=== PATIENT | male | born 1960 | race Caucasian/White ===

== ENCOUNTER 2017-12-29 10:28 | Emergency (ER) | payer OTHER ==
[~2017-12-29] VITALS: Ht 188 cm; Wt 142.0 kg
[2017-12-29 10:34] VITALS: BP 141/79; PULSE 84; RESP 24; O2SAT 99
[2017-12-29 10:44] VITALS: TEMP 97.7
[2017-12-29] MEDS ORDERED: SODIUM CHLOR 0.9% 1000 ML INJ 1,000 ML IV SCH (11:09)
[2017-12-29] MEDS ORDERED: ONDANSETRON HCL 4 MG/2 ML VIAL IVP ONE (11:15)
[2017-12-29] MEDS ORDERED: SODIUM CHLORIDE 0.9% FLUSH 10 ML FLUSH IV FLUSH PRN (11:15)
[2017-12-29] MEDS ORDERED: FAMOTIDINE 20 MG/2 ML VIAL IV PUSH ONE (11:15)
[2017-12-29] MEDS ORDERED: MORPHINE SULFATE 4 MG/ML INJ IV PUSH ONE (11:15)
--- NOTE | 2017-12-29 11:26 | PD ---
HPI Chief Complaint: Chest Pain Time Seen by Provider: 10:50 Travel History International Travel<30 days: No Contact w/Intl Traveler<30days: No Traveled to known affect area: No History of Present Illness HPI 57-year-old male with PMH of COPD, HLD, DMT2, GERD, HTN, gastric ulcer, cardiac arrhythmia s/p pacemaker insertion last week presents to the ED for evaluation of 10 day history of epigastric pain. Rated 4/10 minimally, 7/10 maximally. Described as intermittent, waxing and waning. Worsened by eating. Somewhat alleviating by laying on his right side. Accompanied by chills, low appetite, nausea, vomiting, loose bowel movements, abdominal bloating, shortness of breath. Patient also endorses difficulty starting his urine stream. He denies chest pain, palpitations, cough, back pain, lower extremity edema, hematemesis, melena, hematochezia. He states that he was inpatient at [facility] until 2 days ago. He states that he had an upper endoscopy at that time that was negative. He states that he also had a pacemaker implanted by Dr. Mustafa at that time. He has not had outpatient follow-up since that admission. He is never had abdominal surgery. He states that he did not go back there because he felt "like they did not treat me right or fix my problem. " PCP Dr. Martínez, GI Dr. Fuchs, both out of [place]. [facility] Past Medical History Anxiety: Yes Cardiovascular Problems: Yes High Cholesterol: Yes COPD: Yes Diabetes: Yes Patient Takes Glucophage: No GERD: Yes Hypertension: Yes Respiratory: Yes Ulcer: Yes Past Surgical History Pacemaker: Yes ([employer] Micra [id number] ) Social History Alcohol Use: No Tobacco Use: No Substance Use: No Allergies-Medications (Allergen,Severity, Reaction): Coded Allergies: No Known Allergies (Unverified , 12/29/17) Reported Meds & Prescriptions Reported Meds & Active Scripts Active Reglan (Metoclopramide HCl) 5 Mg Tab 5 Mg PO TIDAC 5 Days Flagyl (Metronidazole) 500 Mg Tab 500 Mg PO TID 7 Days Cipro (Ciprofloxacin HCl) 500 Mg Tab 500 Mg PO BID 7 Days Protonix (Pantoprazole Sodium) 40 Mg Tab 40 Mg PO DAILY Review of Systems Except as stated in HPI: all other systems reviewed are Neg Physical Exam Narrative GENERAL: Well-nourished, well-developed obese white male in no acute distress. SKIN: Focused skin assessment warm/dry. Multiple tattoos noted. Subcentimeter incision in the right groin, well healing without signs of infection. HEAD: Normocephalic. EYES: No scleral icterus. No injection or drainage. NECK: Supple, trachea midline. No JVD or lymphadenopathy. CARDIOVASCULAR: Regular rate and rhythm without murmurs, gallops, or rubs. RESPIRATORY: Breath sounds clear and equal bilaterally. No accessory muscle use. GASTROINTESTINAL: Abdomen soft, mildly distended. Tender to palpation in the epigastric region. Ecchymosis noted in the left lower quadrant. RECTAL EXAM: No masses or tenderness, stool is brown. Guaiac negative MUSCULOSKELETAL: No cyanosis, or edema. BACK: Nontender without obvious deformity. No CVA tenderness. Data Data Last Documented VS Vital Signs Date Time Temp Pulse Resp B/P (MAP) Pulse Ox O2 Delivery O2 Flow Rate FiO2 12/29/17 15:31 2.00 12/29/17 13:24 94 Room Air 12/29/17 10:44 97.7 12/29/17 10:38 79 22 12/29/17 10:34 141/79 (99) Orders Orders Complete Blood Count With Diff (12/29/17 11:09) Comprehensive Metabolic Panel (12/29/17 11:09) Lipase (12/29/17 11:09) Lactic Acid (12/29/17 11:09) Prothrombin Time / Inr (Pt) (12/29/17 11:09) Act Partial Throm Time (Ptt) (12/29/17 11:09) Urinalysis - C+S If Indicated (12/29/17 11:09) Ct Abd/Pel W Iv Contrast(Rout) (12/29/17 11:09) Iv Access Insert/Monitor (12/29/17 11:09) Ecg Monitoring (12/29/17 11:09) Oximetry (12/29/17 11:09) Morphine Inj (Morphine Inj) (12/29/17 11:15) Ondansetron Inj (Zofran Inj) (12/29/17 11:15) Sodium Chlor 0.9% 1000 Ml Inj (Ns 1000 M (12/29/17 11:09) Sodium Chloride 0.9% Flush (Ns Flush) (12/29/17 11:15) Famotidine Inj (Pepcid Inj) (12/29/17 11:15) Ckmb (Isoenzyme) Profile (12/29/17 11:09) Troponin I (12/29/17 11:09) Magnesium (Mg) (12/29/17 11:09) Chest, Single Ap (12/29/17 ) Al-Mag Hy-Si 40-40-4 Mg/Ml Liq (Mag-Al P (12/29/17 12:15) Lidocaine 2% Viscous (Xylocaine 2% Visco (12/29/17 12:15) Electrocardiogram (12/29/17 ) Iohexol 350 Inj (Omnipaque 350 Inj) (12/29/17 12:32) Morphine Inj (Morphine Inj) (12/29/17 14:00) Ed Discharge Order (12/29/17 14:58) Labs Laboratory Tests Test 12/29/17 11:22 12/29/17 13:45 White Blood Count 6.4 TH/MM3 Red Blood Count 4.89 MIL/MM3 Hemoglobin 13.5 GM/DL Hematocrit 40.2 % Mean Corpuscular Volume 82.2 FL Mean Corpuscular Hemoglobin 27.5 PG Mean Corpuscular Hemoglobin Concent 33.5 % Red Cell Distribution Width 14.8 % Platelet Count 286 TH/MM3 Mean Platelet Volume 10.0 FL Neutrophils (%) (Auto) 62.5 % Lymphocytes (%) (Auto) 27.3 % Monocytes (%) (Auto) 7.1 % Eosinophils (%) (Auto) 2.2 % Basophils (%) (Auto) 0.9 % Neutrophils # (Auto) 4.0 TH/MM3 Lymphocytes # (Auto) 1.8 TH/MM3 Monocytes # (Auto) 0.5 TH/MM3 Eosinophils # (Auto) 0.1 TH/MM3 Basophils # (Auto) 0.1 TH/MM3 CBC Comment DIFF FINAL Differential Comment Prothrombin Time 10.3 SEC Prothromb Time International Ratio 1.0 RATIO Activated Partial Thromboplast Time 26.4 SEC Blood Urea Nitrogen 15 MG/DL Creatinine 1.14 MG/DL Random Glucose 121 MG/DL Total Protein 7.3 GM/DL Albumin 3.5 GM/DL Calcium Level 8.7 MG/DL Magnesium Level 1.9 MG/DL Alkaline Phosphatase 98 U/L Aspartate Amino Transf (AST/SGOT) 36 U/L Alanine Aminotransferase (ALT/SGPT) 52 U/L Total Bilirubin 0.6 MG/DL Sodium Level 138 MEQ/L Potassium Level 3.2 MEQ/L Chloride Level 101 MEQ/L Carbon Dioxide Level 27.0 MEQ/L Anion Gap 10 MEQ/L Estimat Glomerular Filtration Rate 66 ML/MIN Lactic Acid Level 2.0 mmol/L Total Creatine Kinase 93 U/L Troponin I LESS THAN 0.02 NG/ML Lipase 139 U/L Urine Color YELLOW Urine Turbidity CLEAR Urine pH 8.5 Urine Specific [place] 1.023 Urine Protein TRACE mg/dL Urine Glucose (UA) NEG mg/dL Urine Ketones TRACE mg/dL Urine Occult Blood NEG Urine Nitrite NEG Urine Bilirubin NEG Urine Urobilinogen LESS THAN 2.0 MG/DL Urine Leukocyte Esterase NEG Urine RBC 1 /hpf Urine WBC 2 /hpf Microscopic Urinalysis Comment CULT NOT INDICATED MDM Medical Decision Making Medical Screen Exam Complete: Yes Emergency Medical Condition: Yes Differential Diagnosis Hiatal hernia versus GERD versus PUD versus cholecystitis versus pancreatitis versus ACS versus chest pain versus other Narrative Course 57-year-old male with PMH of COPD, HLD, DMT2, GERD, HTN, gastric ulcer, cardiac arrhythmia s/p pacemaker insertion last week presents to the ED for evaluation of 10 day history of epigastric pain. Intermittent, waxing and waning, worsened by eating. Accompanied by diaphoresis, chills, low appetite, nausea, vomiting, loose bowel movements, abdominal bloating, shortness of breath. He was inpatient at [facility] until 2 days ago. He states that he had an upper endoscopy at that time that was negative. He states that he also had a pacemaker implanted by Dr. Mustafa at that time. He has not had outpatient follow-up since that admission. He states that he did not go back because he felt "like they did not treat me right or fix my problem." PCP Dr. Martínez, GI Dr. Fuchs, both out of [place]. Pulse 84, BP 141/79, respiratory rate 24, pulse ox 99% on room air on presentation. Physical exam reveals an obese white male in no acute distress. He has reproducible tenderness in the epigastric region but the exam is otherwise unremarkable. IV was established. Patient was administered 4 mg Zofran, 4 mg morphine, 20 mg famotidine 1 L normal saline IV and GI cocktail by mouth. Outpatient record was requested from [facility]. EKG rate 79, sinus rhythm. OH interval 184, QRS 94, QTC 417. Normal axis. Nonspecific ST abnormality. No acute changes. Reviewed by Dr. Jones. CXR: No acute disease per radiology read. Cardiac enzymes negative 1. CBC is unremarkable. INR 1.0. CMP: Potassium 3.2. Glucose 121. Lipase [address] abdomen pelvis: No definite abnormalities identified to explain the clinical symptoms. No acute finding identified. Mild groundglass opacity in the small bowel mesentery which could represent a mesenteric panniculitis but can simply be seen as a normal variant. There are bilateral adrenal gland masses measuring up to 3.4 cm on the right. These do not meet criteria for adenomas on this contrast-enhanced examination. Suggest correlating with any prior outside imaging studies. If none are available suggest further characterization with adrenal protocol CT or MRI on an elective outpatient basis. There is a 2.5 cm metallic linear density in the apical aspect of the right ventricle. Questionable abandoned portion of a pacing wire. Nonacute findings include hepatomegaly with steatosis and mild atherosclerotic disease. On recheck the patient is lying down in the bed, chatting with his family at bedside. He is still complaining of pain. He was administered an additional 4 mg of Zofran. At the conclusion of the evaluation the outpatient record has not been received. I suspect gastrointestinal origin of his pain. Patient's prescribed Reglan, Protonix, Cipro and Flagyl. 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 The patient and his family indicated understanding of the instructions. The patient is stable and discharged home. Diagnosis Primary Impression: Gastroenteritis Additional Impression: Epigastric abdominal pain Referrals: Community Director Patient Instructions: Abdominal Pain (ED), Diet for Stomach Ulcers and Gastritis (ED), Gastroesophageal Reflux Disease (ED), General Instructions Additional Instructions: Rest, hydrate. Begin taking Protonix and antibiotics today. Take every dose of the antibiotic as they are prescribed until every pill is gone. Eat a bland, liquid diet for the next few days and gradually reintroduce new foods. This can include broth, popsicles, applesauce, dry toast. See attached dietary information for more information. Continue at home medications as previously prescribed. Your CT revealed masses above the kidneys of unclear etiology. This needs to be followed up in 3 months by a [address] scan. Kidney function was normal today. Call your Community Director TODAY for follow up this week. Return to the ED for worsening symptoms or any urgent or emergent medical condition. Med/Other Pt SpecificInfo: Prescription(s) given Scripts Metoclopramide (Reglan) 5 Mg Tab 5 MG PO TIDAC for 5 Days, TAB 0 Refills Prov: Emma Jones MD 12/29/17 Metronidazole (Flagyl) 500 Mg Tab 500 MG PO TID for Infection for 7 Days, TAB 0 Refills Prov: Emma Jones MD 12/29/17 Ciprofloxacin (Cipro) 500 Mg Tab 500 MG PO BID for Infection for 7 Days, #14 TAB 0 Refills Prov: Emma Jones MD 12/29/17 Pantoprazole (Protonix) 40 Mg Tab 40 MG PO DAILY for Reflux, #30 TAB 0 Refills Prov: Emma Jones MD 12/29/17 Disposition: 01 DISCHARGE HOME Condition: Stable Melinda Salazar Dec 29, 2017 11:26
[2017-12-29 11:28] VITALS: O2SAT 97
--- NOTE | 2017-12-29 11:48 | RADRPT ---
EXAM DATE/TIME: 12/29/2017 11:30 [facility] COMPARISON: No previous studies available for comparison. INDICATIONS : Complains of abdominal pain, cold sweats, dizziness. MEDICAL HISTORY : Cardiovascular disease. Diabetes mellitus type II. Chronic obstructive pulmonary disease. SURGICAL HISTORY : Pacemaker ENCOUNTER: Initial ACUITY: 2 weeks PAIN SCORE: 10/10 LOCATION: Bilateral epigastric pain and chest FINDINGS: A single view of the chest demonstrates the lungs to be symmetrically aerated without evidence of mas s, infiltrate or effusion. The cardiomediastinal contours are unremarkable. Osseous structures are intact. Anterior cervical fusion plate in place in the lower cervical spine region and mild elevation right hemidiaphragm CONCLUSION: No acute disease. Josh Carrillo MD on December 29, 2017 at 11:44 Board Certified Radiologist. This report was verified electronically.
[2017-12-29 11:52] LABS: BASOPHIL # 0.1 TH/MM3 (0-0.2); BASOPHIL % 0.9 % (0.0-2.0); EOSINOPHIL # 0.1 TH/MM3 (0-0.4); EOSINOPHIL % 2.2 % (0.0-4.0); HEMATOCRIT 40.2 % (39.0-51.0); HEMOGLOBIN 13.5 GM/DL (13.0-17.0); LYMPH % 27.3 % (9.0-44.0); LYMPHOCYTE # 1.8 TH/MM3 (1.0-4.8); MEAN CELL VOLUME 82.2 FL (80.0-100.0); MEAN CORPUSCULAR HEMOGLOBIN 27.5 PG (27.0-34.0); MEAN CORPUSCULAR HGB CONC 33.5 % (32.0-36.0); MONO % 7.1 % (0.0-8.0); MONOCYTE # 0.5 TH/MM3 (0-0.9); NEUT % 62.5 % (16.0-70.0); PLATELET COUNT 286 TH/MM3 (150-450); PROTHROMBIN TIME - PATIENT 10.3 SEC (9.8-11.6); RED BLOOD COUNT 4.89 MIL/MM3 (4.50-5.90); RED CELL DISTRIBUTION WIDTH 14.8 % (11.6-17.2); WHITE BLOOD COUNT 6.4 TH/MM3 (4.0-11.0)
[2017-12-29 11:55] LABS: ALBUMIN 3.5 GM/DL (3.4-5.0); ALT (GPT) 52 U/L (12-78); AST (GOT) 36 U/L (15-37); BLOOD UREA NITROGEN 15 MG/DL (7-18); CALCIUM 8.7 MG/DL (8.5-10.1); CHLORIDE 101 MEQ/L (98-107); CREATININE 1.14 MG/DL (0.60-1.30); GLOMERULAR FILTRATION RATE 66 ML/MIN (>89); GLUCOSE,RANDOM 121 MG/DL (74-106); LIPASE 139 U/L (73-393); MAGNESIUM 1.9 MG/DL (1.5-2.5); SODIUM (NA) 138 MEQ/L (136-145)
[2017-12-29 12:00] LABS: ALKALINE PHOSPHATASE 98 U/L (45-117); TOTAL BILIRUBIN ADULT 0.6 MG/DL (0.2-1.0); TOTAL PROTEIN 7.3 GM/DL (6.4-8.2); TROPONIN I LESS THAN 0.02 NG/ML (0.02-0.05)
[2017-12-29] MEDS ORDERED: LIDOCAINE VISCOUS 2% SOLN 15 ML UDC PO ONE (12:15)
[2017-12-29] MEDS ORDERED: ALUMINUM/MAGNESIUM/SIMETH 30 ML CUP PO ONE (12:15)
[2017-12-29] MEDS ORDERED: IOHEXOL 350 MG/ML 10 ML VIAL (for RAD DIAG) IVCONTRAST ONE (12:32)
--- NOTE | 2017-12-29 12:57 | RADRPT ---
EXAM DATE/TIME: 12/29/2017 12:26 [facility] COMPARISON: No previous studies available for comparison. INDICATIONS : Abdominal pain, nausea, diarrhea IV CONTRAST: 96 cc Omnipaque 350 (iohexol) IV ORAL CONTRAST: No oral contrast ingested. RADIATION DOSE: 17.05 CTDIvol (mGy) MEDICAL HISTORY : Cardiovascular disease. Hypertension. Chronic obstructive pulmonary disease.Gerd, Diabetes SURGICAL HISTORY : Pacemaker. ENCOUNTER: Initial ACUITY: 2 weeks PAIN SCALE: 6/10 LOCATION: Left Epigastric TECHNIQUE: Volumetric scanning of the abdomen and pelvis was performed. Using automated exposure control and ad justment of the mA and/or kV according to patient size, radiation dose was kept as low as reasonably achievable to obtain optimal diagnostic quality images. DICOM format image data is available electro nically for review and comparison. FINDINGS: LOWER LUNGS: The visualized lower lungs are clear. There is a linear metallic density in the apical aspect of the right ventricle measuring approximately 2.5 cm. LIVER: The liver measures 25.4 cm in length and demonstrates abnormal decreased density with sparing around the gallbladder fossa. Gallbladder is mildly distended but no calcified stones are visualized. There is no dilation of the biliary tree. SPLEEN: Normal size without lesion. PANCREAS: Within normal limits. KIDNEYS: Normal in size with likely areas of scar on the left. There is no mass, stone or hydronephrosis. The re are 2 low-density lesions in the right kidney measuring 18 mm at the upper pole and 16 mm in the m idportion. There is also a 2.5 cm low-density lesion in the left mid kidney. All of these have densit y measurements characteristic of simple cysts. ADRENAL GLANDS: There is a right adrenal gland mass arising from the medial limb measuring 3.4 x 2.8 cm with Hounsfie ld unit measurements of 53. There is a smaller left adrenal gland nodule arising from the lateral head b measuring 13 mm with Hounsfield measurements of 54. VASCULAR: There is no aortic aneurysm. There is mild atherosclerotic disease. BOWEL/MESENTERY: The stomach, small bowel, and colon demonstrate no acute abnormality. There is no free intraperitone al air or fluid. Groundglass opacity is present within the small bowel mesentery. There is no signifi cant lymphadenopathy. The appendix is normal. ABDOMINAL WALL: Within normal limits. RETROPERITONEUM: There is no lymphadenopathy. BLADDER: No wall thickening or mass. REPRODUCTIVE: Within normal limits. INGUINAL: There is no lymphadenopathy or hernia. MUSCULOSKELETAL: There are degenerative changes of the lumbar spine. CONCLUSION: 1. No definite abnormalities identified to explain the clinical symptoms. No acute finding is identif ied. There is mild groundglass opacity in the small bowel mesentery which could represent a mesenteri c panniculitis but can simply be seen as a normal variant. 2. There are bilateral adrenal gland masses measuring up to 3.4 cm on the right. These do not meet cr iteria for adenomas on this contrast-enhanced examination. Suggest correlating with any prior outside imaging studies. If none are available suggest further characterization with adrenal protocol CT or MRI on an elective outpatient basis. 3. There is a 2.5 cm metallic linear density in the apical aspect of the right ventricle. Question wh ether this could represent an abandoned portion of a pacing wire. Suggest correlating with the clinic al history. 4. Nonacute findings include hepatomegaly with steatosis and mild atherosclerotic disease. Hayden Arguelles MD on December 29, 2017 at 12:46 Board Certified Radiologist. This report was verified electronically.
[2017-12-29 13:24] VITALS: O2SAT 94
[2017-12-29 14:00] LABS: BILIRUBIN, URINE NEG (NEG); BLOOD, URINE NEG (NEG); GLUCOSE,URINE NEG (NEG); KETONE, URINE TRACE mg/dL (NEG); NITRITE,URINE NEG (NEG); PH, URINE 8.5 (5.0-8.5); URINE COLOR YELLOW (YELLW/STRAW); URINE LEUKOCYTE ESTERASE NEG (NEG)
[2017-12-29] MEDS ORDERED: MORPHINE SULFATE 2 MG/ML INJ IV PUSH ONE (14:00)
[2017-12-29] MEDS ORDERED: METR-1 PO (14:34)
[2017-12-29] MEDS ORDERED: PROT40TA PO (14:34)
[2017-12-29] MEDS ORDERED: CIPR-9 PO (14:34)
[2017-12-29] MEDS ORDERED: REGL5TAB PO (15:11)
--- NOTE | 2017-12-30 00:12 | EKG ---
Date Performed: 12/29/2017 Time Performed: 10:38:40 PTAGE: 57 years EKG: Sinus rhythm NONSPECIFIC ST & T-WAVE ABNORMALITY BORDERLINE ECG INTERPRETATION BASED ON A DEFAULT AGE OF 40 YEARS NO PREVIOUS TRACING DOCTOR: Nathaniel Cuevas Interpretating Date/Time 12/30/2017 00:11:26
== END 2017-12-29 15:32 | disposition home or self-care (01) ==
LOC: NEPE 10:28
DX: K52.9 Noninfective gastroenteritis and colitis, unspecified (principal); K21.9 Gastro-esophageal reflux disease without esophagitis; Z79.899 Other long term (current) drug therapy
CPT/HCPCS: 71045; 74177; 80053; 81001; 82550; 83605; 83690; 83735; 84484; 85025; 85610; 85730; 93005; 96361; 96374; 96375; 96376; 99285; J2270; J2405; J7030; Q9967